=== PATIENT | male | born 1970 | race Caucasian/White ===

== ENCOUNTER → 2019-05-10 | Outpatient (CLI) | payer SELFPAY ==
[~2019-05-10] MED LIST: CEP250 PO; CEP500 PO; CEPH500T7 PO; FAMO10TA86 PO; HYDR-385 PO; HYDR-653 PO; IBUP-136 PO; NAPR220C12 PO; NAPR500T75 PO; ONDA4TAB PO; OXYC5TAB38 PO; PROM-110 PO; antacid
[2019-05-10 15:46] LABS: PLATELET COUNT, AUTOMATED 175 K/uL (150-450)
--- NOTE | 2019-05-10 16:15 | RADIOLOGY IMAGING REPORT ---
[place]AC[place] [facility] [place] NAME: Loi Bell : 1970 MR: [id number] V: [id number] EXAM DATE: ORDERING PHYSICIAN: CAMERON HORTON TECHNOLOGIST: Location: [facility] - [place] Patient: Loi Bell : 1970 Visit/Account:[id number] Date of Sevice: 05/10/2019 US ABD LIMITED ULTRASOUND History: Abdominal pain. Comparison study: None Procedure: There has been satisfactory and complete grayscale ultrasonic evaluation of the abdomen. Findings: Liver: The liver has mildly increased echotexture but no masses are seen. There is no ascites and th ere is hepatopedal blood flow in the main portal vein. Surface contour is smooth. Biliary: The gallbladder is normal and there is no gallstone disease or biliary ductal dilatation. T he sonographic Parsons sign is negative. The common bile duct measures 0.7 mm. Note this measurement is at the upper limits of normal. Correlation with LFTs is recommended. Pancreas: No findings of a peripancreatic fluid collection. The pancreatic duct is mildly dilated at 3.1 mm in the body. Right kidney: There is no hydronephrosis. IMPRESSION: 1. The common bile duct is at the upper limits of normal measuring nearly 7 mm in diameter. There i s also mild dilatation of the pancreatic duct that measures 3.1 mm in the body. There are no gallsto carlton and there is no choledocholithiasis, but correlation with LFTs is recommended to rule out radiogr aphically occult choledocholithiasis. 2. Query fatty infiltration of the liver. Results were called to CAMERON HORTON M.D. At 05/10/2019 4:07 PM. Report Dictated By: Jesse Licona MD at 05/10/2019 4:05 PM Report E-Signed By: Jesse Licona MD at 05/10/2019 4:07 PM WSN:[email or web address]
== END ==
LOC: LAB 15:09
PROVIDERS: ATTEND Nurse Practitioner
DX: R11.2 Nausea with vomiting, unspecified (principal); R10.11 Right upper quadrant pain
CPT/HCPCS: 36415; 76705; 82040; 82150; 82247; 82310; 82374; 82435; 82565; 82947; 83690; 84075; 84132; 84155; 84295; 84450; 84460; 84520; 85025

== ENCOUNTER 2019-05-11 11:21 | Inpatient (IN) | payer SELFPAY ==
[~2019-05-11] VITALS: Ht 167.6 cm; Wt 53.5 kg
[~2019-05-11 11:21] MED LIST changes: -IBUP-136 PO; -NAPR220C12 PO; -OXYC5TAB38 PO
[2019-05-11] MEDS ORDERED: NS(*) 0.9% 1000 ML BAG 1,000 ML IV ONE (11:34)
[2019-05-11] MEDS ORDERED: MORPHINE 4 MG/ML SDV IVP ONE (11:45)
[2019-05-11] MEDS ORDERED: ONDANSETRON 4 MG/2 ML VIAL IVP ONE (11:45)
[2019-05-11 12:12] LABS: PLATELET COUNT, AUTOMATED 182 K/uL (150-450)
[2019-05-11] MEDS ORDERED: DEXTROSE 50% 50 ML SYR IVP ONE ×2 (12:30→18:20)
[2019-05-11] MEDS ORDERED: THIAMINE HCL 200 MG/2 ML INJ IVP ONE (12:30)
[2019-05-11] MEDS ORDERED: IOPAMIDOL 76% 100 ML INFUS BTL 100 ML ONE (12:35)
--- NOTE | 2019-05-11 13:15 | RADIOLOGY IMAGING REPORT ---
FACILITY: [facility] PATIENT NAME: Loi Bell : 1970 MR: [id number] V: [id number] EXAM DATE: ORDERING PHYSICIAN: ALDEN GARCIA TECHNOLOGIST: Location: [facility] - [place] Patient: Loi Bell : 1970 Visit/Account:[id number] Date of Sevice: 05/11/2019 EXAMINATION: CT Abdomen and Pelvis With Contrast 05/11/2019 11:34 AM HISTORY: epigastric pain TECHNIQUE: Spiral scan was through the abdomen and pelvis during injection of nonionic iodinated in travenous contrast. Contrast: 75 mL of IV Isovue 370. One of the following dose optimization techniques was utilized in the performance of this exam: Autom ated exposure control; adjustment of the mA and/or kV according to the patient's size; or use of an i terative reconstruction technique. Specific details can be referenced in the facility's radiology C T exam operational policy. COMPARISON STUDIES: Abdominal ultrasound yesterday.. FINDINGS: Liver / biliary: Severe fatty infiltration of the liver. No focal finding. No visible cholelithiasis or significant biliary dilatation. Pancreas: Duct is upper normal. Gland enhances well. Questionable subtle edema between the pancreas a nd the descending duodenum and along the back of the duodenum. Spleen: Incidental anterolateral and inferior accessory splenule Adrenal glands: negative Kidneys / retroperitoneum: negative Pelvic structures: negative Bowel / peritoneum / mesenteries: negative Vessels: Mild atherosclerosis. Musculoskeletal / Body wall: L4-5 spondylosis. Lymph node assessment: negative Lower chest: Less than 4 mm lateral left lower lobe nodule (series 2 image 6). IMPRESSION: 1. Questionable subtle edema in the pancreaticoduodenal area without other clear imaging findings of pancreatitis or duodenitis. 2. Severe fatty infiltration of the liver. 3. Left lower lobe micronodule. Based on size this would not require follow-up based on current Fleis chner recommendations. Report Dictated By: Sharan Lind MD at 05/11/2019 12:59 PM Report E-Signed By: Sharan Lind MD at 05/11/2019 1:08 PM WSN:[id number]
--- NOTE | 2019-05-11 13:23 | ER Report ---
History and Physical Time Seen By MD: 11:36 Hx. of Stated Complaint: abd pain off and on about a month, pt reports doctor said something about pancreatitis HPI/ROS CHIEF COMPLAINT: Epigastric abdominal pain HISTORY OF PRESENT ILLNESS: Patient is a 48-year-old male who denies any significant past medical history who presents with complaint of epigastric pain was most severe yesterday and was seen by his primary care provider at the [facility] and blood work returned concerning for possible pancreatitis with an elevation of lipase at 18,000. REVIEW OF SYSTEMS: Constitutional: [No fever, no chills.] Eyes: [No discharge.] ENT: [No sore throat.] Cardiovascular: [No chest pain, no palpitations.] Respiratory: [No cough, no shortness of breath.] Gastrointestinal: [No abdominal pain, no vomiting.] Genitourinary: [No hematuria.] Musculoskeletal: [No back pain.] Skin: [No rashes.] Neurological: [No headache.] Allergies: Coded Allergies: codeine (Verified Allergy, Mild, HALLUCINATIONS AND TEMPERATURE ISSUES, 05/11/19) Home Meds Reported Medications Naproxen Sodium (ALEVE) 220 Mg Capsule, 220 MG PO TID PRN for HEADACHE, CAPSULE 05/11/19 Ibuprofen (IBUPROFEN) 200 Mg Capsule, 1 CAP PO Q6H PRN for HEADACHE, CAPSULE 05/11/19 Discontinued Scripts Cephalexin 500 Mg Tab (KEFLEX 500 MG TAB) 500 Mg Tablet, 500 MG PO Q6H, #28 TAB Prov:ALEXI CHURCH FORESTRY AND WILDLIFE MANAGER 05/05/17 Past Medical/Surgical History Denies significant medical history although does admit to binge drinking alcohol Hx Smoking: No Smoking Status: Current: Every Day Smoker Hx Substance Use Disorder: No Hx Alcohol Use: Yes (WEEKLY) Constitutional Vital Sign - Last 24 Hours 05/11/19 05/11/19 05/11/19 05/11/19 11:28 11:30 12:00 12:06 Temp 97.8 Pulse 75 87 80 Resp 16 B/P (MAP) 114/78 110/78 (89) 73/40 (51) 93/64 (74) Pulse Ox 92 92 84 05/11/19 05/11/19 05/11/19 05/11/19 12:08 12:22 13:00 13:30 Pulse 75 74 B/P (MAP) 100/65 (77) 106/72 (83) 99/75 (83) Pulse Ox 97 98 O2 Flow Rate 2.0 Physical Exam General/Constitutional: Patient is awake, alert, nontoxic and in no acute respiratory distress. Head: Normocephalic and atraumatic. Eyes: Conjunctival clear, Pupils are equal and reactive to light. Extraocular muscles are intact and symmetrical. Sclera are clear and anicteric. Ears:External canals are clear. Tympanic membranes are clear with normal landmarks and light reflex. Nares: No rhinorrhea or bleeding. Turbinates are pink and moist. Oropharyngeal: Mucous membranes are moist. There is no pharyngeal erythema or exudate. There are no palatal petechiae. Uvula is midline and symmetrical. Neck: Supple, no adenopathy. Cardiovascular: Heart is regular rate and rhythm without audible murmurs, rubs or gallops. Pulmonary: Lungs are clear to auscultation bilaterally. There are no wheezes, rales, or rhonchi. Chest rise is symmetrical Abdomen: Soft, nontender, no guarding or peritoneal signs. Extremities: No gross deformities, No peripheral cyanosis. Able to move all 4 extremities. Neuro: Alert and oriented X3, Cranial nerves 2 thru 12 are intact and symmetrical. Patient has normal gait. Skin: No rashes, skin is warm dry and well perfused. Medical Decision Making Data Points Result Diagram: 05/12/1951605/12/19 0517 Laboratory Hematology Test 05/11/19 11:52 Peripheral Blood Smear Y/N Serology Test 05/11/19 11:52 Helicobacter pylori IgG Antibody Negative (NEGATIVE) Toxicology Test 05/11/19 11:52 Serum Alcohol 242 mg/dl EKG/Imaging Imaging [place]ACILITY[place] [facility] [place] PATIENT NAME: Loi Bell : 1970 MR: [id number] V: [id number] EXAM DATE: ORDERING PHYSICIAN: ALDEN GARCIA TECHNOLOGIST: Location: [facility] Patient: Loi Bell : 1970 Visit/Account:[id number] Date of Sevice: 05/11/2019 EXAMINATION: CT Abdomen and Pelvis With Contrast 05/11/2019 11:34 AM HISTORY: epigastric pain TECHNIQUE: Spiral scan was through the abdomen and pelvis during injection of nonionic iodinated intravenous contrast. Contrast: 75 mL of IV Isovue 370. One of the following dose optimization techniques was utilized in the performance of this exam: Automated exposure control; adjustment of the mA and/or kV according to the patient's size; or use of an iterative reconstruction technique. Specific details can be referenced in the facility's radiology CT exam operational policy. COMPARISON STUDIES: Abdominal ultrasound yesterday.. FINDINGS: Liver / biliary: Severe fatty infiltration of the liver. No focal finding. No visible cholelithiasis or significant biliary dilatation. Pancreas: Duct is upper normal. Gland enhances well. Questionable subtle edema between the pancreas and the descending duodenum and along the back of the duodenum. Spleen: Incidental anterolateral and inferior accessory splenule Adrenal glands: negative Kidneys / retroperitoneum: negative Pelvic structures: negative Bowel / peritoneum / mesenteries: negative Vessels: Mild atherosclerosis. Musculoskeletal / Body wall: L4-5 spondylosis. Lymph node assessment: negative Lower chest: Less than 4 mm lateral left lower lobe nodule (series 2 image 6). IMPRESSION: 1. Questionable subtle edema in the pancreaticoduodenal area without other clear imaging findings of pancreatitis or duodenitis. 2. Severe fatty infiltration of the liver. 3. Left lower lobe micronodule. Based on size this would not require follow-up based on current Fleischner recommendations. Report Dictated By: Sharan Lind MD at 05/11/2019 12:59 PM Report E-Signed By: Sharan Lind MD at 05/11/2019 1:08 PM WSN:[id number] ED Course/Re-evaluation ED Course 05/11/2019 1:29:01 pm I initially spoke with our hospitalist Dr. Bryan Liao in regard to this patient's pancreatitis he had some concerns that he could based on ultrasound yesterday and some elevated liver enzymes possibly be due to stone and obstruction I did speak with Dr. Williams Schwartz at [facility] and history physical exam all pertinent lab data from yesterday and today along with imaging studies from yesterday and today were discussed. Processes that we can safely watch him here in [place] rather than transfer at this time as long as symptoms are improving. If symptoms worsen he can be recontacted. I again spoke with Dr. Liao Who Is the Admitting Hospitalist and He Accepted Patient at This Time. Decision to Disposition Date: May 11, 2019 Decision to Disposition Time: 13:30 Depart Departure Latest Vital Signs Vital Signs Date Time Temp Pulse Resp B/P (MAP) Pulse Ox O2 Delivery O2 Flow Rate FiO2 05/11/19 13:30 74 99/75 (83) 98 05/11/19 12:22 2.0 05/11/19 11:28 97.8 16 Impression: Primary Impression: Acute pancreatitis Additional Impression: Alcohol abuse Condition: Improved Disposition: Admitted from ER Problem Qualifiers Primary Impression: Acute pancreatitis Pancreatitis type: alcohol induced Acute pancreatitis complication: unspecified Qualified Codes: K85.20 - Alcohol induced acute pancreatitis without necrosis or infection ALDEN GARCIA MD May 11, 2019 13:23
[2019-05-11 14:16] VITALS: BP 106/81
[2019-05-11] MEDS ORDERED: NAPR220C12 PO (14:28)
[2019-05-11] MEDS ORDERED: IBUP-136 PO (14:28)
[2019-05-11] MEDS ORDERED: NS(*) 0.9% 1000 ML BAG 1,000 ML IV PRN (14:41)
[2019-05-11] MEDS ORDERED: PROMETHAZINE 25 MG/ML 1 ML AMP IVP PRN (14:45)
[2019-05-11] MEDS ORDERED: MORPHINE 50 MG/50 ML PCA BAG IV PRN (14:45)
[2019-05-11] MEDS ORDERED: NALOXONE HCL 0.4 MG/ML VIAL IVP PRN (14:45)
[2019-05-11] MEDS ORDERED: INFLUENZA VIRUS VAC 0.5ML SYR IM ONLY ONE (14:45)
--- NOTE | 2019-05-11 14:48 | History & Physical ---
History of Present Illness Chief Complaint Abdominal pain History of Present Illness This patient presented to the emergency room complaining of abdominal pain over the last month. He has also been having nausea with food. History Problems: (1) Alcohol abuse Status: Acute Home Meds Reported Medications Naproxen Sodium (ALEVE) 220 Mg Capsule, 220 MG PO TID PRN for HEADACHE, CAPSULE 05/11/19 Ibuprofen (IBUPROFEN) 200 Mg Capsule, 1 CAP PO Q6H PRN for HEADACHE, CAPSULE 05/11/19 Discontinued Scripts Cephalexin 500 Mg Tab (KEFLEX 500 MG TAB) 500 Mg Tablet, 500 MG PO Q6H, #28 TAB Prov:ALEXI CHURCH ATHLETIC COACH 05/05/17 Allergies: Coded Allergies: codeine (Verified Allergy, Mild, HALLUCINATIONS AND TEMPERATURE ISSUES, 05/11/19) Hx Smoking: No Smoking Status: Current: Every Day Smoker Hx Alcohol Use: Yes (WEEKLY) Review of Systems All Systems Reviewed/Normal: Yes, Except as Noted Gastrointestinal: Nausea, Abdominal Pain Exam Vital Signs Vital Signs Date Time Temp Pulse Resp B/P (MAP) Pulse Ox O2 Delivery O2 Flow Rate FiO2 05/11/19 14:16 97.8 69 16 106/81 (89) 96 Nasal Cannula 1.0 Neuro: No Gross deficits Eyes: PERRLA Cardiovascular: Regular Rate and Rhythm Respiratory: Clear to Auscultation GI: Other (Epigastric tenderness.) Extremities: No Edema Integumentary: No Cyanosis Medical Decision Making Data Points Result Diagram: 05/11/19 1152 05/11/19 1152 Assessment and Plan Problems: (1) Acute pancreatitis Assessment & Plan: He did have an elevated lipase and his CT scan showed findings consistent with pancreatitis. He has been placed on NPO status. Morphine DIRECTOR MEDIA and IV fluids are ordered. A repeat lipase is ordered for the morning. Venous Thromboembolism Antithrombotics Is Pt On Any Antithrombotics?: No Exam Sepsis Risk: No Definite Risk ABY ESCOTO DO May 11, 2019 14:48
[2019-05-11] MEDS: D5NS(*) 1000 ML BAG 1,000 ML IV PRN ×2 (18:39→23:50)
[2019-05-11 19:49] VITALS: BP 99/62
[2019-05-12] VITALS (7 sets, daily range): BP systolic 93–108; BP diastolic 58–72; Ht 167.6 cm; Wt 53.5 kg
[2019-05-12] MEDS: D5NS(*) 1000 ML BAG 1,000 ML IV PRN ×4 (04:56→20:12)
[2019-05-12 05:43] LABS: PLATELET COUNT, AUTOMATED 132 K/uL (150-450)
[2019-05-12] MEDS ORDERED: LORazepam 2 MG/ML VIAL IM PRN (08:25)
[2019-05-12] MEDS ORDERED: LORazepam 1 MG TAB PO PRN (08:25)
--- NOTE | 2019-05-12 09:37 | Hospitalist Progress Note ---
Subjective Progress Notes Subjective He was admitted with pancreatitis. He has a noticeable tremor to bilateral hands. He also has epigastric tenderness. Denies Nausea or vomiting. Patient Complains of: Cardiovascular: No: Chest Pain Respiratory: No: Shortness of Breath Gastrointestinal: No Nausea Physical Exam Vital Signs Date Time Temp Pulse Resp B/P (MAP) Pulse Ox O2 Delivery O2 Flow Rate FiO2 05/12/19 08:11 16 96 05/12/19 08:07 Nasal Cannula 1.0 05/12/19 07:49 97.9 63 108/67 (81) Intake and Output 05/12/19 07:03 Intake Total 3604 ml Balance 3604 ml Intake IV Total 3604 ml # Voids 1 General Appearance: Alert, Awake, No Acute Distress, Afebrile Cardiovascular: Regular Rate and Rhythm Respiratory: No Respiratory Distress, Clear to Auscultation GI: Other (epigastric tenderness noted) Extremities: Warm, Perfused; No Edema Psych: Alert & Oriented X3, Appropriate Mood & Affect Result Diagram: 05/12/1951605/12/19516 Assessment and Plan Problems: (1) Acute pancreatitis Assessment & Plan: He did have an elevated lipase and his CT scan showed findings consistent with pancreatitis. He has been placed on NPO status. Morphine CLERK ENTRY LEVEL and IV fluids are ordered. A repeat lipase is ordered for the morning. (2) Alcohol abuse Status: Chronic Assessment & Plan: He reports history of drinking occasional "shots". He has noticeable tremor to hands. He will be placed on CIWA assessments and Ativan has been ordered if needed. Exam Sepsis Risk: No Definite Risk Problem Qualifiers (1) Acute pancreatitis: Pancreatitis type: alcohol induced Acute pancreatitis complication: unspec ified Qualified Codes: K85.20 - Alcohol induced acute pancreatitis without ne crosis or infection JOSE ELIAS SANCHEZ NIGHT CUSTODIAN May 12, 2019 09:37
[2019-05-12] MEDS: THIAMINE HCL 200 MG/2 ML INJ IVP SCH (09:52)
[2019-05-13] MEDS: D5NS(*) 1000 ML BAG 1,000 ML IV PRN ×4 (01:11→16:58)
[2019-05-13 02:30] VITALS: BP 116/71
[2019-05-13 06:20] LABS: PLATELET COUNT, AUTOMATED 110 K/uL (150-450)
[2019-05-13 07:26] VITALS: BP 119/77
[2019-05-13] MEDS: THIAMINE HCL 200 MG/2 ML INJ IVP SCH (08:56)
[2019-05-13 11:11] VITALS: BP 124/78
--- NOTE | 2019-05-13 12:30 | Hospitalist Progress Note ---
Subjective Progress Notes Subjective He was admitted with pancreatitis. He reports improvement in abdominal pain today. His lipase has decreased significantly this morning. Patient Complains of: Cardiovascular: No: Chest Pain Respiratory: No: Shortness of Breath Physical Exam Vital Signs Date Time Temp Pulse Resp B/P (MAP) Pulse Ox O2 Delivery O2 Flow Rate FiO2 05/13/19 11:19 97 05/13/19 11:11 98.6 83 14 124/78 (93) 05/13/19 07:41 Room Air 05/13/19 02:30 1.0 Intake and Output 05/13/19 01:03 Intake Total 4839 ml Balance 4839 ml IV Total 4839 ml # Voids 6 General Appearance: Alert, Awake, No Acute Distress, Afebrile Neuro: No Gross deficits Cardiovascular: Regular Rate and Rhythm Respiratory: No Respiratory Distress, Clear to Auscultation GI: Soft and Non-Tender Psych: Alert & Oriented X3, Appropriate Mood & Affect Result Diagram: 05/13/1921 05/13/19520 Assessment and Plan Problems: (1) Acute pancreatitis Assessment & Plan: He did have an elevated lipase and his CT scan showed findings consistent with pancreatitis. He was placed on NPO initially, but will advance to clear liquid diet. Morphine RETAIL MERCHANDISER and IV fluids are ordered. A repeat lipase is ordered for the morning. (2) Alcohol abuse Status: Chronic Assessment & Plan: He reports history of drinking occasional "shots". He has noticeable tremor to hands. He will be placed on CIWA assessments and Ativan has been ordered if needed. Exam Sepsis Risk: No Definite Risk Problem Qualifiers (1) Acute pancreatitis: Pancreatitis type: alcohol induced Acute pancreatitis complication: unspecified Qualified Codes: K85.20 - Alcohol induced acute pancreatitis without necrosis or infection JOSE ELIAS SANCHEZ SHEETING PULLER May 13, 2019 12:30
[2019-05-13 14:53] VITALS: BP 114/77
[2019-05-13 19:36] VITALS: BP 122/82
[2019-05-13] MEDS ORDERED: IBUPROFEN 600 MG TAB PO PRN (20:25)
[2019-05-13 23:45] VITALS: BP 131/88
[2019-05-14 05:26] VITALS: BP 137/88
[2019-05-14 06:50] LABS: PLATELET COUNT, AUTOMATED 126 K/uL (150-450)
[2019-05-14 07:54] VITALS: BP 114/75
[2019-05-14] MEDS: THIAMINE HCL 200 MG/2 ML INJ IVP SCH (09:23)
[2019-05-14] MEDS ORDERED: OXYC5TAB38 PO (09:38)
--- NOTE | 2019-05-14 09:47 | Hospitalist Depart ---
Discharge Summary Reason for Hosp/Final Diag: (1) Acute pancreatitis Hospital Course & Plan: He did have an elevated lipase and his CT scan showed findings consistent with pancreatitis. He was placed on NPO initially, his diet was advanced to low fat and he tolerated without pain. He will be given small amount of pain medication. He was recommended to follow up with general surgery in one week regarding elevated liver enzymes with pancreatitis. (2) Alcohol abuse Status: Chronic Hospital Course & Plan: He reports history of drinking occasional "shots". He had noticeable tremor to hands. He was placed on CIWA assessments, but no medications were required for withdraw. Departure Latest Vital Signs Vital Signs 05/13/19 05/14/19 05/14/19 02:30 07:54 08:09 Temp 98.3 Pulse 65 Resp 16 B/P (MAP) 114/75 (88) Pulse Ox 95 O2 Delivery Room Air O2 Flow Rate 1.0 Weight (Pounds): 118 Result Diagram: 05/14/1952405/14/19524 Condition: Improved Discharge: Home, Self Care Discharge Instructions Home Meds Active Scripts Oxycodone Hcl (OXYCODONE HCL) 5 Mg Tablet, 5 MG PO Q6H PRN for PAIN, #10 TAB Prov:JOSE ELIAS SANCHEZ CATEGORY ANALYST 05/14/19 Reported Medications Naproxen Sodium (ALEVE) 220 Mg Capsule, 220 MG PO TID PRN for HEADACHE, CAPSULE 05/11/19 Ibuprofen (IBUPROFEN) 200 Mg Capsule, 1 CAP PO Q6H PRN for HEADACHE, CAPSULE 05/11/19 Discontinued Scripts Cephalexin 500 Mg Tab (KEFLEX 500 MG TAB) 500 Mg Tablet, 500 MG PO Q6H, #28 TAB Prov:ALEXI CHURCH CATEGORY ANALYST 05/05/17 Diet: Low Fat Activity: As Tolerated Special Instructions: Follow up with Dr. Verdin in one week. Do not drink alcohol. Follow low fat diet. Copies to: LAW VERDIN ; Venous Thromboembolism Antithrombotics Is Pt On Any Antithrombotics?: No Problem Qualifiers (1) Acute pancreatitis: Pancreatitis type: alcohol induced Acute pancreatitis complication: unspecified Qualified Codes: K85.20 - Alcohol induced acute pancreatitis without necrosis or infection JOSE ELIAS SANCHEZ [facility] May 14, 2019 09:47
[2019-05-15] MEDS ORDERED: THIAMINE HCL 100 MG TAB PO SCH (09:00)
== END 2019-05-14 10:12 | disposition home or self-care (01) | DRG 440 ==
LOC: ER 11:40 → MED 13:41
PROVIDERS: ADMIT Family Medicine; ATTEND Family Medicine
DX: K85.20 Alcohol induced acute pancreatitis without necrosis or infection (principal); F10.10 Alcohol abuse, uncomplicated; F17.210 Nicotine dependence, cigarettes, uncomplicated; Y90.8 Blood alcohol level of 240 mg/100 ml or more; Z88.5 Allergy status to narcotic agent
CPT/HCPCS: 36415; 36416; 74177; 80320; 82040; 82247; 82310; 82374; 82435; 82565; 82947; 82948; 83690; 84075; 84132; 84155; 84295; 84450; 84460; 84520; 85025; 86677; 96374; 96375; 99284; J2270; J2405; J2550; J3411; J7030; J7042; Q9967

== ENCOUNTER → 2019-05-22 | Outpatient (CLI) | payer SELFPAY ==
[2019-05-12 11:42] VITALS: BMI 19.0
[~2019-05-22] MED LIST changes: +IBUP-136 PO; +NAPR220C12 PO; +OXYC5TAB38 PO
[2019-05-22 10:32] LABS: PLATELET COUNT, AUTOMATED 339 K/uL (150-450)
== END ==
LOC: LAB 10:06
PROVIDERS: ATTEND Internal Medicine
DX: K85.90 Acute pancreatitis without necrosis or infection, unspecified (principal); R29.898 Other symptoms and signs involving the musculoskeletal system
CPT/HCPCS: 36415; 82040; 82247; 82310; 82374; 82435; 82565; 82947; 83690; 84075; 84132; 84155; 84295; 84450; 84460; 84520; 85025

== ENCOUNTER → 2019-05-31 | Outpatient (CLI) | payer SELFPAY ==
[2019-05-12 11:42] VITALS: BMI 19.0
[~2019-05-31] MED LIST changes: +GADOBENATE 529MG/1ML 15ML VIAL IVP ONE; +NS(*) 0.9% 50 ML BAG 50 ML ONE
--- NOTE | 2019-05-31 13:20 | RADIOLOGY IMAGING REPORT ---
FACILITY: [facility] - [place] PATIENT NAME: Loi Bell : 1970 MR: [id number] V: [id number] EXAM DATE: ORDERING PHYSICIAN: LAW VERDIN TECHNOLOGIST: Location: Patient: Loi Bell : 1970 Visit/Account:[id number] Date of Sevice: 05/31/2019 Exam type: XR ORBITS History: Pre-MRI screening Comparison: None. Findings: No radiopaque metallic foreign bodies project over the orbits IMPRESSION: 1. No radiopaque metallic foreign bodies project over the orbits Report Dictated By: Nanette Peña MD at 05/31/2019 1:10 PM Report E-Signed By: Nanette Peña MD at 05/31/2019 1:11 PM WSN:[id number]
--- NOTE | 2019-05-31 15:01 | RADIOLOGY IMAGING REPORT ---
FAC[place]: [facility] [place] NAME: Loi Bell : 1970 MR: [id number] V: [id number] EXAM DATE: ORDERING PHYSICIAN: LAW VERDIN TECHNOLOGIST: Location: [facility] Patient: Loi Bell : 1970 Visit/Account:[id number] Date of Sevice: 05/31/2019 MR ABDOMEN MRCP W & W/O CONTRAST HISTORY: Acute pancreatitis, elevated lipase, weight loss TECHNIQUE: Multiplanar multisequence magnetic resonance imaging of the abdomen with and without intr avenous contrast including magnetic resonance cholangiopancreatography (MRCP). CONTRAST: 11 millimeters of MultiHance COMPARISON: CT May 11, 2019 FINDINGS: Visualized lung bases: Grossly unremarkable. Liver: Diffuse hepatic steatosis Gallbladder: Negative. Bile ducts: Nondistended and unremarkable. Spleen: Small accessory splenule Adrenal glands: Negative. Pancreas: Negative. Kidneys: Negative. Vessels/spaces/nodes: No bulky adenopathy or ascites. Visualized GI: Grossly unremarkable. Bones/soft tissues: Degenerative changes L4-5 IMPRESSION: Diffuse hepatic steatosis otherwise unremarkable MRCP Report Dictated By: Nanette Peña MD at 05/31/2019 2:39 PM Report E-Signed By: Nanette Peña MD at 05/31/2019 2:52 PM WSN:[email or web address]
== END ==
LOC: MRI 07:14
PROVIDERS: ATTEND Surgery
DX: K76.0 Fatty (change of) liver, not elsewhere classified (principal)
CPT/HCPCS: 70030; 74183; A9577; J7050